=== PATIENT | male | born 1995 | race Caucasian/White ===

== ENCOUNTER 2021-04-26 19:32 | Emergency (ER) | payer OTHER, SELFPAY ==
[2021-04-26 19:33] VITALS: BP 140/84; PULSE 89; RESP 16; TEMP 36.6; O2SAT 96; BMI 30.4
--- NOTE | 2021-04-26 19:52 | EDS_ITS ---
HPI History of Present Illness Chief Complaint: Upper Extremity Injury Informant: patient Narrative Narrative: Patient is a 26-year-old previously healthy male who presents to the emergency department for nontraumatic right shoulder pain. Has been present over the past 4 days. He has been taking ibuprofen for this which has not been giving significant relief. Any movements of the arm makes it worse. He denies any numbness or tingling going down the arm. He has never had this pain before in the past. He denies any neck pain or back pain. No chest pain or shortness of breath. No fevers or chills. No recent illness including any cough, nausea/vomiting or diarrhea. Swelling. No overlying skin changes. PFSH PFSH Home Medications No Known/Unobtainable [No Known Home Medications] 09/26/16 [History Last Taken Unknown] Allergy/AdvReac Type Severity Reaction Status Date / Time No Known Allergies Allergy Verified 04/26/21 19:35 Social History Smoking Status: Never smoker ROS [facility] ED Constitutional Constitutional ED: Denies chills or fever(s) ENT ENT ED: Denies rhinorrhea Cardiovascular Cardiovascular: Denies chest pain Respiratory/Chest Respiratory/Chest: Denies cough or dyspnea Gastrointestinal Gastrointestinal: Denies abdominal pain, diarrhea, nausea or vomiting Musculoskeletal Musculoskeletal: Reports other Details: Right shoulder pain ; Denies back pain or neck pain Integumentary Denies rash Neurologic Neurologic: Denies dizziness, headache(s) or weakness EXAM Physical Exam Const Vital Signs: 04/26/21 19:33 Temperature 98 F Temperature Source Temporal Pulse Rate 89 Respiratory Rate 16 Blood Pressure 140/84 H Blood Pressure Mean 102 Pulse Ox 96 Oxygen Delivery Method Room Air Positive well nourished and well developed General Appearance ED: well developed and NAD HEENT Reports normocephalic and head/scalp atraumatic Eyes PERRL and EOMs intact bilaterally Neck supple General: Negative for tenderness Resp normal respiratory effort and clear to auscultation bilaterally Auscultation: Negative for rales, rhonchi or wheezes Cardio regular rate, regular rhythm and no murmurs GI normal to inspection, nondistended, normoactive bowel sounds and non-tender Palpation: soft; Negative for guarding or rebound tenderness present Extremity normal to inspection Extremity Narrative: Tenderness around the entire shoulder. No crepitus a ppreciated. 5 out of 5 muscle strength but pain with active range of motion. Pain is exacerbated with raising the arm against resistance. 2+ radial pulse. 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 Sensation intact. General Extremety ED: Negative for edema General Extremity: Negative for edema Neuro no sensory deficits noted Sensorium / Orientation: alert Motor Exam: strength 5/5 throughout Psych mental status grossly normal Skin no rashes or lesions noted MDM MDM MDM Narrative Medical decision making narrative: Patient presents the ED for nontraumatic right shoulder pain. Does not recall any inciting event. It is exacerbated with any movements. I believe that this is muscular in nature. We will give a dose of Toradol for symptomatic treatment. Patient's vital signs otherwise unremarkable. He has benign physical exam. I do not feel any imaging is necessary at this time. On reexamination patient is feeling much better. He is moving his shoulder well now. He does feel comfortable going home. Will recommend symptomatic treatment. He is not to have any heavy lifting with the arm over the next few days. Return precautions reviewed. He otherwise is to follow-up with his PCP. All questions were answered. Discharge Plan Triage Chief Complaint: Upper Extremity Injury ED Provider: [facility] Dx/Rx/DC Orders Clinical Impression: Right shoulder pain Instructions: ED Shoulder Sprain Prescriptions: No Action No Known Home Medications RF: 0 Primary Care Provider: Care Physician,No Primary Referrals: Care Physician,No Primary [Primary Care Provider] - 1 Week if not improving Disposition Disposition: Home, Self Care Discharge Date/Time: 04/26/21 21:04
[2021-04-26] MEDS: Ketorolac 30 MG/ML Syringe IM (19:59)
[2021-04-26 21:01] VITALS: PULSE 95; RESP 20; O2SAT 98
--- NOTE | 2021-04-26 21:02 | ED.RN ---
THIS NURSE REVIEWED D/C INSTRUCTIONS WITH PT. PT VERBALIZED UNDERSTANDING OF INSTRUCTIONS. PT DENIES FURTHER NEEDS OR QUESTIONS AT THIS TIME
== END 2021-04-26 21:04 | disposition home or self-care (01) ==
PROVIDERS: Emergency Provider Emergency Medicine
DX: M25.511 Pain in right shoulder (principal)
CPT/HCPCS: 96372; 99282